=== PATIENT | male | born 1940 | race Caucasian/White ===

== ENCOUNTER 2016-09-03 16:18 | Emergency (ER) | payer OTHER ==
--- NOTE | 2016-09-03 17:35 | ER NURSING DOCUMENTATION ---
Nurse's Notes [facility] Name:Joanna Ramirez Age:75 yrs Sex:Male :1940 Arrival Date:09/03/2016 Time:16:18 Bed1 Private MD: Diagnosis:Knee and Leg Sprain Presentation: 09/03 16:31 Presenting complaint: Patient states: pt states he was at the dog park and got run into st by some large dogs. Pt now has a left knee that is stiff and sore. Transition of care: patient was not received from another setting of care. 16:31 Acuity: [facility] 4 st 16:31 Method Of Arrival: Private Vehicle st Triage Assessment: 16:34 General: Appears in no apparent distress, Behavior is cooperative. Pain: Complains of st pain in left knee Unable to use pain scale. pt denies pain but states that his knee is stiff and sore. Cardiovascular: No deficits noted. Respiratory: No deficits noted. GI: No deficits noted. Musculoskeletal: pt has some swelling in the left knee however he states that it is not more then his normal knee swelling. Historical: - Allergies: Codeine; - Home Meds: 1. Nexium Oral - Tetanus: < 10 years. - Ebola Screening: : Patient denies exposure to infectious person. Patient denies travel to an Ebola-affected area in the 21 days before illness onset. . - Immunization history: Pneumococcal vaccine status is unknown. - Social history: Smoking status: Patient states former smoker of tobacco. Screenin:37 Infectious Disease Risk None. Abuse screen: Denies threats or abuse. Denies injuries st from another. Nutritional screening: No deficits noted. Assessment: 16:43 General: pt is able to put some weight on the left knee. . st Vital Signs: 16:36 BP 142 / 80; Pulse 65; Temp 98.2; Pulse Ox 91% ; st ED Course: 16:19 Patient arrived in ED. arc 16:21 Vera Bennett RN is Primary Nurse. st 16:[address] 16:36 Port Xray Completed. pm1 16:38 Valuables Remains with patient. st 16:[address] injury[address] 16:40 Hans Roberson MD is Attending Physician. tl1 Administered Medications: No medications were administered Outcome: 17:30 Discharge ordered by MD. tl1 17:33 Discharged to home ambulatory. st 17:33 Condition: stable 17:33 Discharge instructions given to patient, Instructed on discharge instructions, follow up and referral plans. Ortho Care 17:34 Patient left the ED. 09/04 11:14 Discharge F/U Call: Unable to reach: no answer alka Signatures: Vera Bennett RN Margaux Nunez RN RN ma McBride, Philisha pm1 Hans Roberson MD MD tl1 Damaris Vaughan, Reg Reg arc
--- NOTE | 2016-09-05 15:48 | RADIOLOGY REPORT ---
Three views of the left knee demonstrate marked tricompartmental degenerative joint disease. No displaced fracture, subluxation or bony destructive change is seen. IMPRESSION: Marked tricompartmental degenerative joint disease. MTDD
--- NOTE | 2016-09-05 17:34 | ER PHYSICIAN DOCUMENTATION ---
Physician Documentation [facility] Name:Joanna Ramirez Age:75 yrs Sex:Male :1940 Arrival Date:09/03/2016 Time:16:18 Bed1 Private MD: Hans Mondragon Disposition: 09/03 18:00 Chart complete. tl1 Disposition: 09/03/16 17:30 Discharged to Home/Self Care. Impression: Knee and Leg Sprain. - Condition is Good. - Discharge Instructions: [facility]. - Medical Reconciliation form form. - Follow up: Private Physician; When: 4- 6 days; Reason: Recheck today's complaints, Continuance of care. - Problem is new. - Symptoms are unchanged. HPI: 16:30 This 75 yrs old Male presents to ER via Private Vehicle with complaints of tl1 Knee Injury. 16:30 The patient presents with an injury. The complaints affect the lateral aspect of left tl1 knee. Context: resulted from A dog ran into the lateral aspect of his left knee, the patient can fully bear weight, the patient is able to ambulate. Onset: The symptom(s)/episode began/occurred today. Historical: - Allergies: Codeine; - Home Meds: 1. Nexium Oral - Tetanus: < 10 years. - Ebola Screening: : Patient denies exposure to infectious person. Patient denies travel to an Ebola-affected area in the 21 days before illness onset. . - Immunization history: Pneumococcal vaccine status is unknown. - Social history: Smoking status: Patient states former smoker of tobacco. ROS: 16:30 MS/extremity: Positive for pain. tl1 Exam: 16:30 Constitutional: This is a well developed, well nourished patient who is awake, alert, tl1 and in no acute distress. 16:30 Cardiovascular: Rate: normal. 16:30 Respiratory: Respirations: normal. 16:30 Musculoskeletal/extremity: Joints: All joints are normal except the left knee displays Moderate TTP of the lateral aspect . No laxity. No pain with varus or valgus stress. Anterior and posterior drawer signs negative. Small effusion which he says in unchanged . No warmth or redness. ROM not formally tested.. Vital Signs: 16:36 BP 142 / 80; Pulse 65; Temp 98.2; Pulse Ox 91% ; st MDM: 16:34 Patient medically screened. tl1 17:00 Differential diagnosis: closed fracture, contusion, sprain. Data reviewed: vital signs, tl1 nurses notes, radiologic studies, plain films, and as a result, I will discharge patient. Test interpretation: by ED physician or midlevel provider: plain radiologic studies. Counseling: I had a detailed discussion with the patient and/or guardian regarding: the historical points, exam findings, and any diagnostic results supporting the discharge/admit diagnosis, radiology results, to return to the emergency department if symptoms worsen or persist or if there are any questions or concerns that arise at home. Response to treatment: There is no appreciated change of the patient's symptoms at this time. 09/03 16:33 Order name: Ice Packs; Complete Time: 16:33 st Dispensed Medications: No medications were administered Signatures: Vera Bennett, RN Hans Sandoval MD MD tl1
== END 2016-09-03 17:35 | disposition home or self-care (01) ==
LOC: ER 16:18
DX: S86.912A Strain of unspecified muscle(s) and tendon(s) at lower leg level, left leg, initial encounter (principal); W54.1XXA Struck by dog, initial encounter; Y92.830 Public park as the place of occurrence of the external cause; Y93.K9 Activity, other involving animal care
CPT/HCPCS: 99282